=== PATIENT | female | born 1990 | race Asian ===

== ENCOUNTER 2018-11-05 23:12 | Emergency (ER) | payer MEDICAID ==
[~2018-11-05] VITALS: Ht 160 cm; Wt 49.9 kg
[2018-11-05 23:31] VITALS: BP_SYST 105
--- NOTE | 2018-11-06 00:59 | NUR ---
Patient to ER bed 5 to gown for evaluation. Side rails up.
--- NOTE | 2018-11-06 00:59 | NUR ---
~0.5 cm lac to medial distal phalanx of digit 5 of RHA. Pt states that a knife fell onto her finger while putting away dishes at 2300. No active bleeding noted at this time.
--- NOTE | 2018-11-06 01:06 | NUR ---
Thierno alan in [facility] - 11/06/18 at 0107 by ISABELAJ Finger soaking in betadine and NS.
--- NOTE | 2018-11-06 01:06 | NUR ---
Digit 5 of RHA placed in betadine and NS.
--- NOTE | 2018-11-06 01:30 | NUR ---
Dr. Zamora at bedside to assess pt.
--- NOTE | 2018-11-06 02:00 | NUR ---
Lac well approximated with dermabond by Dr. Zamora. Pt tolerated well.
[2018-11-06 02:25] VITALS: BP_SYST 105
--- NOTE | 2018-11-06 02:25 | NUR ---
Patient given written and verbal discharge instructions and verbalizes understanding. ER MD discussed with patient the results and treatment provided. Patient in stable condition. ID arm band removed. No Rx given. Patient educated on pain management and to follow up with PMD. Pain Scale 1/10. Opportunity for questions provided and answered. Medication side effect fact sheet provided.
== END 2018-11-06 02:25 | disposition home or self-care (01) ==
LOC: SED 23:12
DX: S61.216A Laceration without foreign body of right little finger without damage to nail, initial encounter (principal); W20.8XXA Other cause of strike by thrown, projected or falling object, initial encounter; Y93.89 Activity, other specified; Y92.89 Other specified places as the place of occurrence of the external cause; Y99.8 Other external cause status
CPT/HCPCS: 99283